=== PATIENT | female | born 1985 | race Caucasian/White ===

== ENCOUNTER 2020-03-16 11:43 | Emergency (ER) | payer OTHER, SELFPAY ==
--- NOTE | 2020-03-16 11:53 | DI.RAD.S_ITS ---
PROCEDURE: XR FOOT LT MIN 3V INDICATIONS: stubbed toe TECHNIQUE: 3 views of the foot were acquired. COMPARISON: None. FINDINGS: Bones: There is a mildly displaced fracture seen involving the middle phalanx of the 4th toe. No additional fractures are detected. No suspicious lytic or blastic lesions are seen. Soft tissues: No tibiotalar joint effusion. Achilles tendon appears normal. IMPRESSION: 4th toe fracture. Dictated by: Manolo Estrada M.D. on 03/16/2020 at 11:08 Approved by: Manolo Estrada M.D. on 03/16/2020 at 11:09
[2020-03-16 12:00] VITALS: BP 138/76; PULSE 83; RESP 18; TEMP 36.6; O2SAT 98
--- NOTE | 2020-03-16 12:54 | ED_ITS ---
HPI - Extremity Injury (Lower) <MIKAEL Castellano - Last Filed: 03/16/20 21:06> General Chief Complaint: Extremity Injury, Lower Stated Complaint: Possible Broken Toe, Left Foot Time Seen by Provider: 03/16/20 12:01 Source: patient Mode of arrival: Wheelchair Limitations: no limitations History of Present Illness HPI Narrative: This is a 34-year-old female, nonsmoker, who has noncontributing medical history presents to ED with her young son with chief complain of left 4th toe pain. Patient reports she was walking up on stairs last night and accidentally tripped and jammed her affected toe while falling. She denies hitting her head or neck pain. She reports mild discomfort on her left knee but she is able to flex and extend affected leg and is able to bear weight. Patient had used ice and took Motrin last night for discomfort. Patient reports intact sensation and is able to move affected toe but with discomfort. Related Data Home Medications Medication Instructions Recorded Confirmed bupropion HCl mg PO 03/16/20 spironolactone 03/16/20 Allergies Allergy/AdvReac Type Severity Reaction Status Date / Time No Known Allergies Allergy Uncoded 10/18/17 12:49 Review of Systems <MIKAEL Castellano - Last Filed: 03/16/20 21:06> Review of Systems Narrative: General: Denies fever, chills, fatigue, malaise, sweats. Respiratory: Denies dyspnea, cough, wheezing, hemoptysis, sputum. Cardiovascular: Denies chest pain, palpitations, orthopnea, edema. Gastrointestinal: Denies nausea, vomiting, abdominal pain, diarrhea, constipation, melena. Musculoskeletal: See HPI Skin: Denies rash, skin lesions, or other. Neurologic: Denies weakness, headache, numbness, change in speech, confusion, seizures, incoordination. Psychiatric: No concerning psychosocial issues. Patient History <MIKAEL Castellano - Last Filed: 03/16/20 21:06> Medical History (Updated 03/16/20 @ 12:56 by MIKAEL Castellano) Anxiety (Acute) Social History (Updated 03/16/20 @ 12:57 by MIKAEL Castellano) Smoking Status: Never smoker alcohol intake: current substance use type: does not use Smoking Status: Never smoker alcohol intake frequency: holidays/special occasions only Exam <Pollo PhillipsMIKAEL Carcamo - Last Filed: 03/16/20 21:06> Narrative Exam Narrative: General appearance: well developed, well nourished, in no acute distress. Head: normocephalic, atraumatic, no scalp lesions, non-tender. ENT: Hearing grossly intact. Nose without bleeding, purulent discharge. Airway patent. Neck/Thyroid: neck supple, full range of motion, no visible masses or meningeal signs. No JVD, non-tender without lymphadenopathy. Skin: no suspicious rashes, lesions over visible areas. Warm and dry and appropriate color for ethnicity. Heart: no clubbing, no cyanosis, no edema. Lungs: Breathing even and unlabored. No stridor. No accessory muscles used. Able to speak in full sentences. Chest: normal shape and expansion. Abdomen: non-obese, non-distended. Neurologic: alert and oriented. Cognitive exam, ORGANISATIONAL PSYCHOLOGIST and PNS grossly intact on informal exam. Psych: good eye contact, normal affect. Initial Vital Signs Initial Vital Signs: Vital Signs Temperature 97.9 F 03/16/20 12:00 Pulse Rate 83 03/16/20 12:00 Respiratory Rate 18 03/16/20 12:00 Blood Pressure 138/76 03/16/20 12:00 Pulse Oximetry 98 03/16/20 12:00 Extrem Left lower extremity: foot Details: normal capillary refill, normal to inspection, tenderness Location: of another digit Location: the 4th digit, abnormal ROM of toe Details: pain with active ROM and pain with passive ROM, no edema, vascular exam Details: dorsalis pedis pulse present and motor-sensory exam Details: light-touch normal; no abrasions, no lacerations, no ecchymosis, no crepitus and no puncture wound <Clau Donato DO - Last Filed: 03/18/20 08:29> Initial Vital Signs Initial Vital Signs: Vital Signs Temperature 97.9 F 03/16/20 12:00 Pulse Rate 83 03/16/20 12:00 Respiratory Rate 18 03/16/20 12:00 Blood Pressure 138/76 03/16/20 12:00 Pulse Oximetry 98 03/16/20 12:00 Procedures <Pollo PhillipsMIKAEL Carcamo - Last Filed: 03/16/20 21:06> Orthopedic Splinting/Casting Injury #1: Side: left Lower Extremity Injury Location: toe Lower Extremity Immobilizer: post-op shoe and jenny tape Other Orthopedic Equipment: crutches Post splinting neuro exam: intact Post splinting vascular exam: intact Placed by: Nursing Scores <Pollo ChavezMIKAEL benjamin - Last Filed: 03/16/20 21:06> GCS [place] coma scale eye opening: Spontaneous [place] coma scale verbal response: Orientated [place] coma scale motor response: Obey commands [place] coma scale total score: 15 Course <Pollo PhillipsDelmyJohnMIKAEL benjamin - Last Filed: 03/16/20 21:06> Orders Ordered: ED Orders 03/16/20 11:53 XR foot LT min 3V Stat <Clau oDnato DO - Last Filed: 03/18/20 08:29> Orders Ordered: ED Orders 03/16/20 11:53 XR foot LT min 3V Stat MDM - Extremity Injury (Lower) <Pollo PhillipsMIKAEL Stephens - Last Filed: 03/16/20 21:06> Differential Diagnosis Differential diagnosis: Likely fracture of toe and other (Toe sprain) Medical Records Attestation: I reviewed the patient's medical records. Imaging Data XR-Foot LT: Radiologist's Impression: [place] [address] XRay Report Signed Patient: Dorothy Lang#: [id number] : 1985Acct:[id number] Age/Sex: 34 / FDate of Service: 03/16/20 Loc: ED Accession Number: [id number] Procedure: XR foot LT min 3V Ordering Provider: Clau Donato D.O. PROCEDURE: XR FOOT LT MIN 3V INDICATIONS: stubbed toe TECHNIQUE: 3 views of the foot were acquired. COMPARISON: None. FINDINGS: Bones: There is a mildly displaced fracture seen involving the middle phalanx of the 4th toe. No additional fractures are detected. No suspicious lytic or blastic lesions are seen. Soft tissues: No tibiotalar joint effusion. Achilles tendon appears normal. IMPRESSION: 4th toe fracture. Dictated by: Manolo Estrada M.D. on 03/16/2020 at 11:08 Approved by: Manolo Estrada M.D. on 03/16/2020 at 11:09 [facility] Narrative Medical decision making narrative: Left foot x-ray shows mildly displaced fracture in the middle phalanx of the 4th toe where patient reports maximum tenderness. Brisk cap refill and patient is able to move affected toe but with pain and intact sensation. No pain, swelling and intact mobility to left foot and ankle. Ortho shoes provided and jenny-taped fractured toe. Crutches were state to patient's height and she was able to demonstrate on use. Advised RICE therapy and to follow-up with [facility]ist. Return precautions were discussed with patient and patient verbalized understanding and in agreement with the treatment plan. Discharge Plan Departure Patient Disposition: Home Clinical Impression: Closed fracture of toe Qualifiers: Encounter type: initial encounter Toe: lesser toe Phalanx: middle Fracture alignment: displaced Laterality: left Qualified Code(s): S92.522A - Displaced fracture of middle phalanx of left lesser toe(s), initial encounter for closed fracture Discharge Date/Time: 03/16/20 13:29 Instructions: DI for Toe Fracture Activity Restrictions/Additional Instructions: You have been diagnosed with [left 4th toe middle Phalanx fracture]. Please use ortho shoes and jenny-taped for splinting for immobilization and pain. What to do: *Take your medications as directed. You can take [id number] Tylenol and or Motrin as needed for discomfort. Tylenol 650-1000 mg up to 3 to 4 times a day as needed for pain. Ibuprofen/Motrin 400-600 mg up to 3 to 4 times a day as needed for pain with food to decrease GI irritation. Please use ?RICE? therapy such as Rest, Ice, Compression/Spliint/Acewra, and Elevation above the chest level. Ice the area for next 24-48 hrs after the initial injury. Please try to avoid getting swelling to the affected site since this may cause increasing pain. Please monitor for increasing pain, swelling, tingling/numbness, unable to move affected/below the injury site, cool limbs. *Follow up with your primary care provider/[facility] orthopedist in 2-3 days, call for an appointment. Let them know you were seen in the ED and that we asked you to be seen in follow up. *Return to ED if you have any new, worsening, or concerning symptoms, such as [ chest pain, breathing difficulty, unable to tolerate fluids, symptoms above to monitor or any acute concerns]. Prescriptions: No Action bupropion HCl 150 mg tablet extended release 24 hr PO RF: 0 spironolactone 25 mg tablet RF: 0 Referrals: [facility] [Provider Group] Marily Dyer DO [Primary Care Provider] - <Clau Donato DO - Last Filed: 03/18/20 08:29> Cosign ED Attending Wenceslao Attestation: I was immediately available in the department for consultation. Documentation has been reviewed. I agree with assessment and plan.
== END 2020-03-16 13:29 | disposition home or self-care (01) ==
PROVIDERS: Emergency Provider Nurse Practitioner Family; PCP Family Medicine
DX: S92.522A Displaced fracture of middle phalanx of left lesser toe(s), initial encounter for closed fracture (principal); W10.9XXA Fall (on) (from) unspecified stairs and steps, initial encounter
CPT/HCPCS: 73630; 99282; 99283

== ENCOUNTER 2021-04-02 13:09 | Emergency (ER) | payer OTHER, SELFPAY ==
[2021-04-02 13:15] VITALS: BP 148/89; PULSE 95; RESP 18; TEMP 36.7; O2SAT 98; BMI 38.7
--- NOTE | 2021-04-02 13:20 | DI.RAD.S_ITS ---
PROCEDURE: XR CHEST 1V INDICATIONS: chest pain TECHNIQUE: One view of the chest was acquired. COMPARISON: None. FINDINGS: Surgical changes and devices: None. Lungs and pleura: Lungs are clear. No pleural effusions or pneumothorax. Mediastinum: Mediastinal contours appear normal. Heart size is normal. Bones and chest wall: No suspicious bony lesions. Overlying soft tissues appear unremarkable. IMPRESSION: No evidence acute pulmonary process. Dictated by: Hung Barrios M.D. on 04/02/2021 at 13:45 Approved by: Hung Barrios M.D. on 04/02/2021 at 13:45
[2021-04-02 13:23] VITALS: PULSE 89; RESP 21; O2SAT 97
[2021-04-02 13:30] VITALS: PULSE 92; RESP 20; O2SAT 98
[2021-04-02 13:31] VITALS: BP 157/66; PULSE 91; RESP 22; O2SAT 96
--- NOTE | 2021-04-02 13:31 | ED_ITS ---
HPI - Chest Pain General Chief Complaint: Chest Pain Stated Complaint: chest pain, light headed, both arms numb, sweating Time Seen by Provider: 04/02/21 13:23 Source: patient Mode of arrival: Ambulatory Limitations: no limitations History of Present Illness HPI narrative: Patient is a 35-year-old female. Is here for evaluation of chest discomfort. She states that before noon today she was at work. States she s tarted to feel a tightness in her chest. No shortness of breath. Does not think that was worse with touching the area. She tried to stretch which made the symptoms somewhat worse. She then stated that her arms became somewhat tingly. She then started to break out into a sweat. Her coworkers advised that she should come to the emergency department. Currently she states that her symptoms have vastly improved. Is having some small amount of chest discomfort. Has never had anything like this in the past. Related Data Home Medications Medication Instructions Recorded Confirmed bupropion HCl 150 mg 24 hr tablet, mg PO 03/16/20 extended release spironolactone 25 mg tablet 03/16/20 Allergies Allergy/AdvReac Type Severity Reaction Status Date / Time No Known Drug Allergies Allergy Verified 04/02/21 13:20 Review of Systems Constitutional Constitutional: Denies fever(s) and Denies headache(s) ENT Ears, Nose, Mouth, and Throat: Denies headache(s) Cardiovascular Cardiovascular: Reports as per HPI, Reports system reviewed and no additional complaints, except as documented and Denies dyspnea Respiratory Respiratory: Denies cough and Denies dyspnea Gastrointestinal Gastrointestinal: Denies abdominal pain, Denies nausea and Denies vomiting Musculoskeletal Musculoskeletal: Reports system reviewed and no additional complaints, except as documented Integumentary/Breasts Skin/Breast: Reports system reviewed and no additional complaints, except as documented Neurologic Neurologic: Denies headache(s) Hematologic/Lymphatic On Anticoagulants: No Patient History Medical History Anxiety Social History Smoking Status: Never smoker alcohol intake: current substance use type: does not use Smoking Status: Never smoker alcohol intake frequency: holidays/special occasions only Substance Use Type: does not use Exam Initial Vital Signs Initial Vital Signs: Vital Signs Temperature 98.1 F 04/02/21 13:15 Pulse Rate 95 H 04/02/21 13:15 Respiratory Rate 18 04/02/21 13:15 Blood Pressure 148/89 H 04/02/21 13:15 Pulse Oximetry 98 04/02/21 13:15 Const General: cooperative, healthy appearing and comfortable HENMT Head: normal to inspection and normocephalic Chest Chest: No crepitus and No tenderness Resp Effort & Inspection: normal respiratory effort Auscultation: clear to auscultation bilaterally Cardio Rate: regular rate Rhythm: regular rhythm GI Inspection: normal to inspection Palpation: soft and No tender Skin General: no rashes or lesions noted Neuro General: patient alert, patient awake, patient oriented x3 and moves all extremities Extrem General: normal to inspection and capillary refill normal Psych Appearance: grossly normal and well kempt Scores HEART Score Heart Score history: Slightly Suspicious Heart Score EKG: Normal Heart Score Age: < 45 years old Heart Score risk factors: No known risk factors Heart Score troponin: < or = to normal limit Heart Score Total: 0 Course Orders Ordered: ED Orders 04/02/21 13:20 XR chest 1V Stat EKG-12 Lead Stat 04/02/21 13:30 Complete Blood Count AUTO DIFF Stat Comprehensive Metabolic Panel Stat Lipase Stat Troponin & CK Cardiac Panel Stat Vital Signs Vital signs: Vital Signs - 8 hr 04/02/21 13:15 04/02/21 13:23 04/02/21 13:30 Temperature 98.1 F Pulse Rate 95 H 89 92 H Respiratory Rate 18 21 20 Blood Pressure 148/89 H Pulse Oximetry 98 97 98 04/02/21 13:31 Temperature Pulse Rate 91 H Respiratory Rate 22 Blood Pressure 157/66 H Pulse Oximetry 96 MDM - Chest Pain Lab Data Attestation: I reviewed the patient's lab results. Result diagrams: 04/02/21 13:30 04/02/21 13:30 Labs: Lab Results 04/02/21 04/02/21 Range/Units 13:30 13:30 WBC 8.7 (4.5-11.0) X10^3/uL RBC 4.15 (4.0-5.2) X10^6/uL Hgb 13.7 (12.0-16.0) g/dL Hct 39.9 (36-46) % MCV 96.1 (80-100) fL MCH 33.1 (26-34) PG MCHC 34.4 (30-36) % RDW 12.6 (11.6-14.8) % Plt Count 378 (150-400) X10^3/uL Neut % (Auto) 55.1 (50-75) % Lymph % (Auto) 30.9 (25-40) % [place] % (Auto) 11.2 (3-14) % Eos % (Auto) 2.2 (2-4) % Baso % (Auto) 0.6 (0-2) % Neut # (Auto) 4800 (1731-9904) /uL Lymph # (Auto) 2700 (3438-1703) /uL [place] # (Auto) 1000 H (0-900) /uL Eos # (Auto) 200 (0-450) /uL Baso # (Auto) 0 (0-100) /uL Sodium 138 (137-145) mmol/L Potassium 4.4 (3.4-5.1) mmol/L Chloride 104 (98-107) mmol/L Carbon Dioxide 26 (22-32) mmol/L BUN 12 (7-17) mg/dL Creatinine 0.65 (0.52-1.04) mg/dL Estimated GFR > 60.0 (>60) mL/min BUN/Creatinine Ratio 18.5 (6-22) Glucose 87 (70-100) mg/dL Calcium 9.8 (8.4-10.2) mg/dL Total Bilirubin 0.4 (0.2-1.3) mg/dL AST 240 H (14-36) IU/L ALT 253 H (<35) IU/L Alkaline Phosphatase 102 (38-126) U/L Total Creatine Kinase 66 (30-135) U/L CK-MB (CK-2) TNP CK-MB (CK-2) Rel Index TNP Troponin I < 0.012 (0.01-0.034) ng/mL Total Protein 8.3 H (6.3-8.2) g/dL Albumin 4.7 (3.5-5.0) g/dL Globulin 3.6 (1.7-4.1) g/dL Albumin/Globulin Ratio 1.3 (1.0-2.8) Lipase 120 (23-300) U/L Imaging Data Chest x-ray: Radiologist's Impression: [address] [address] XRay Report Signed Patient: Dorothy Lang MR#: [id number] : 1985 Acct:[id number] Age/Sex: 35 / F Date of Service: 04/02/21 Loc: ED Accession Number: [id number] ?? Procedure: XR chest 1V Ordering Provider: Josh Eid D.O. PROCEDURE:? XR CHEST 1V ? INDICATIONS:? chest pain ? TECHNIQUE:? One view of the chest was acquired.? ? COMPARISON:? None. ? FINDINGS:? ? Surgical changes and devices:? None.? ? Lungs and pleura:? Lungs are clear.? No pleural effusions or pneumothorax.? ? Mediastinum:? Mediastinal contours appear normal.? Heart size is normal.? ? Bones and chest wall:? No suspicious bony lesions.? Overlying soft tissues appear unremarkable.? ? IMPRESSION:? No evidence acute pulmonary process. ? ? ? Dictated by: Hung Barrios M.D. on 04/02/2021 at 13:45 ? ? Approved by: Hung Barrios M.D. on 04/02/2021 at 13:45?? ECG Data Attestation: I personally reviewed and interpreted this ECG as follows: Interpretation: Sinus rhythm Normal axis Normal QRS Normal QTC No ST T wave changes MDM Narrative Medical decision making narrative: Patient is a low risk heart score. EKG chest x-ray and labs are unremarkable. She does have had elevation in her liver function test. She has no right upper quadrant abdominal pain. I did discuss with her that potentially this was a gallbladder issue however given her presentation today no further workup needed in the emergency department. She states she has been told that she has had elevated liver enzymes in the past. She has been on Accutane at the time. She was informed she needed to contact h er primary doctor for follow-up. Will hold on further workup for now. Low suspicion for emergent condition. She was given return precautions and follow- up instructions. She expressed understanding agreement. Discharge Plan Departure Patient Disposition: Home Clinical Impression: Atypical chest pain Instructions: DI for Atypical Chest Pain Activity Restrictions/Additional Instructions: You did have an elevation in your liver enzymes today. You need to talk with your primary doctor regarding this. The rest of your workup of your heart and lungs today was very reassuring. Continues to take all of your medications as directed and return to the emergency department for any new or worsening symptoms. Prescriptions: No Action bupropion HCl 150 mg tablet extended release 24 hr PO RF: 0 spironolactone 25 mg tablet RF: 0 Referrals: Marily Dyer DO [Primary Care Provider] -
[2021-04-02 13:38] LABS: Add Manual Diff / Slide Review NO; Basophils Absolute Auto 0 /uL (0-100); Basophils Percent Auto 0.6 % (0-2); Eosinophils Absolute Auto 200 /uL (0-450); Eosinophils Percent Auto 2.2 % (2-4); Hematocrit 39.9 % (36-46); Hemoglobin 13.7 g/dL (12.0-16.0); Lymphocytes Absolute Auto 2700 /uL (1100-4500); Lymphocytes Percent Auto 30.9 % (25-40); Mean Corpuscular HGB Conc 34.4 % (30-36); Mean Corpuscular Hemoglobin 33.1 PG (26-34); Mean Corpuscular Volume 96.1 fL (80-100); Monocytes Absolute Auto 1000 /uL (0-900); Monocytes Percent Auto 11.2 % (3-14); Neutrophils Absolute Auto 4800 /uL (1500-7000); Neutrophils Percent Auto 55.1 % (50-75); Platelet Count 378 X10^3/uL (150-400); Red Blood Cell Count 4.15 X10^6/uL (4.0-5.2); Red Cell Distribution Width 12.6 % (11.6-14.8); White Blood Cell Count 8.7 X10^3/uL (4.5-11.0)
[2021-04-02 13:48] LABS: Alanine Aminotransferase 253 IU/L (<35); Albumin 4.7 g/dL (3.5-5.0); Albumin Globulin Ratio 1.3 (1.0-2.8); Alkaline Phosphatase 102 U/L (38-126); Aspartate Aminotransferase 240 IU/L (14-36); BUN Creatinine Ratio 18.5 (6-22); Bilirubin Total 0.4 mg/dL (0.2-1.3); Blood Urea Nitrogen 12 mg/dL (7-17); Calcium 9.8 mg/dL (8.4-10.2); Carbon Dioxide 26 mmol/L (22-32); Chloride 104 mmol/L (98-107); Creatine Kinase 66 U/L (30-135); Estimated Glomerular Filt Rate > 60.0 mL/min (>60); Globulin 3.6 g/dL (1.7-4.1); Glucose 87 mg/dL (70-100); HEMOLYSIS 28 (0-50); Lipase 120 U/L (23-300); Potassium 4.4 mmol/L (3.4-5.1); Sodium 138 mmol/L (137-145); Total Protein 8.3 g/dL (6.3-8.2)
[2021-04-02 14:00] LABS: Troponin I < 0.012 ng/mL (0.01-0.034)
[2021-04-02 14:29] VITALS: BP 123/74; PULSE 88; O2SAT 98
== END 2021-04-02 14:30 | disposition home or self-care (01) ==
PROVIDERS: Emergency Provider Emergency Medicine; PCP Family Medicine
DX: R07.89 Other chest pain (principal)
CPT/HCPCS: 36415; 71045; 80053; 82550; 83690; 84484; 85025; 93005; 93010; 99284